=== PATIENT | female | born 1995 | race Hispanic/Latino ===

== ENCOUNTER 2017-08-20 11:37 | Inpatient (IN) | payer MEDICAID, OTHER ==
[~2017-08-20] VITALS: Ht 154.9 cm; Wt 68.5 kg
[2017-08-20] MEDS ORDERED: LACTATED RINGERS 1000ML 1,000 ML IV PRN (11:44)
[2017-08-20] MEDS ORDERED: OXYTOCIN 10 USP UNITS/ML 20 UNIT in LACTATED RINGERS 1000ML 1,000 ML IV SCH (12:30)
[2017-08-20] MEDS ORDERED: PROMETHAZINE HCL 25 MG/ML 1ML AMPULE IM SCH (12:30)
[2017-08-20] MEDS ORDERED: MEPERIDINE-PF 25 MG/ML SYG IVP ONE (12:30)
[2017-08-20] MEDS ORDERED: PROMETHAZINE HCL 25 MG/ML 1ML AMPULE IM ONE (12:35)
[2017-08-20] MEDS ORDERED: MEPERIDINE-PF 25 MG/ML SYG ONE (12:35)
[2017-08-20 12:43] LABS: MEAN CORPUSCULAR HEMOGLOBIN 31.7 pg (27.0-33.0); MEAN CORPUSCULAR HGB CONC 34.6 g/dL (32.0-36.0); MEAN CORPUSCULAR VOLUME 91.6 fL (80-100); PLATELET COUNT (AUTO) 292 K/uL (130-400); RED BLOOD CELL COUNT(AUTO) 4.15 MIL/uL (4.00-5.50); RED CELL DISTRIBUTION WIDTH 14.4 % (11.0-15.5); WHITE BLOOD COUNT (AUTO) 9.3 K/uL (4.8-10.8)
[2017-08-20] MEDS ORDERED: LACTATED RINGERS 1000ML 1,000 ML IV ONE (13:01)
[2017-08-20] MEDS ORDERED: OXYTOCIN 10 USP UNITS/ML ONE (13:01)
[2017-08-20] MEDS ORDERED: LIDOCAINE HCL 1% 20 ML VIAL ONE (13:02)
[2017-08-20] MEDS ORDERED: LANOLIN 30GM OINTMENT TP PRN (14:00)
[2017-08-20] MEDS ORDERED: ACETAMINOPHEN 325 MG TAB PO PRN (14:00)
[2017-08-20] MEDS ORDERED: WITCH HAZEL 1 PAD TP PRN (14:00)
[2017-08-20] MEDS ORDERED: OXYTOCIN-LR 20 UNITS/1000 ML 1,000 ML IV SCH (14:00)
[2017-08-20] MEDS ORDERED: BENZOCAINE/LANOLIN/ALOE VERA 60 ML AEROSOL TP PRN (14:00)
[2017-08-20 15:25] VITALS: BP 110/59
[2017-08-20] MEDS ORDERED: PREN-154 PO (15:34)
[2017-08-20] MEDS: IBUPROFEN 600 MG TABLET PO PRN (15:38)
[2017-08-20 20:26] VITALS: BP 120/66
[2017-08-20] MEDS: DOCUSATE SODIUM 100 MG CAP PO SCH (21:21)
[2017-08-20 23:42] VITALS: BP 118/64
[2017-08-21 04:11] VITALS: BP 98/55
[2017-08-21 05:30] LABS: MEAN CORPUSCULAR VOLUME 91.3 fL (80-100); PLATELET COUNT (AUTO) 277 K/uL (130-400); RED BLOOD CELL COUNT(AUTO) 3.95 MIL/uL (4.00-5.50); RED CELL DISTRIBUTION WIDTH 14.3 % (11.0-15.5)
[2017-08-21] MEDS: IBUPROFEN 600 MG TABLET PO PRN (06:22)
[2017-08-21 07:47] VITALS: BP 101/54
[2017-08-21 08:20] LABS: HEPATITIS Bs ANTIGEN SCREEN P Negative (Negative)
[2017-08-21] MEDS: DOCUSATE SODIUM 100 MG CAP PO SCH (09:54)
[2017-08-21 11:26] VITALS: BP 98/52
== END 2017-08-21 14:05 | disposition home or self-care (01) | DRG 775 ==
LOC: UNDOADMIN 11:37 → LDH 11:37 → PREINTOOBSV 11:39 → LDH 11:40 → OBSVTOIN 11:40 → WSH 16:24
PROVIDERS: ADMIT Obstetrics & Gynecology; ATTEND Obstetrics & Gynecology
PROC: 10E0XZZ Delivery of Products of Conception, External Approach (ICD-10-PCS; principal; 2017-08-20)
DX: O77.0 Labor and delivery complicated by meconium in amniotic fluid (principal); Z37.0 Single live birth; Z3A.39 39 weeks gestation of pregnancy
CPT/HCPCS: 36415; 85027; 86592; 86850; 86900; 86901; 87340; A4351; J2175; J2550; J2590; J7120